=== PATIENT | female | born 1960 | race Caucasian/White ===

== ENCOUNTER → 2021-05-30 | Day surgery (SDC) | payer OTHER ==
[~2021-05-30] VITALS: Ht 178 cm; Wt 104.0 kg
[~2021-05-30] MED LIST: ALLEGRA ALLERG180 MG PO; ANTIVERT25 MG PO; BACTRIM DS TAB1 EACH PO; BUPROPION HCL100 MG PO; LEVOTHYROXINE150 MC1 PO
== END | disposition home or self-care (01) ==
LOC: FAS 10:35
DX: Z12.11 Encounter for screening for malignant neoplasm of colon (principal); D12.3 Benign neoplasm of transverse colon; K57.30 Diverticulosis of large intestine without perforation or abscess without bleeding; Z87.891 Personal history of nicotine dependence; Z80.0 Family history of malignant neoplasm of digestive organs
CPT/HCPCS: J1610; J2704; J7120